=== PATIENT | male | born 1960 | race Caucasian/White ===

== ENCOUNTER 2018-12-22 06:12 | Day surgery (SDC) | payer MEDICAID ==
[2018-12-21 08:00] VITALS: BP 116/58; PULSE 69; RESP 15
[~2018-12-22] VITALS: Ht 167.6 cm; Wt 69.0 kg
[2018-12-22 07:45] VITALS: Ht 167.6 cm; Wt 69.0 kg
[2018-12-22] MEDS ORDERED: AMLO-218 PO (07:55)
[2018-12-22] MEDS ORDERED: ALLO100T PO (07:55)
[2018-12-22] MEDS ORDERED: LOSA25TA12 PO (07:55)
[2018-12-22] MEDS ORDERED: FEROUS SULFATE (07:55)
[2018-12-22] MEDS ORDERED: MEPERIDINE 25 MG INJ IV PRN (08:00)
[2018-12-22] MEDS ORDERED: ONDANSETRON 4 MG INJ IV PRN (08:00)
[2018-12-22] MEDS ORDERED: LABETALOL HCL 20MG INJ IV PRN (08:00)
[2018-12-22] MEDS ORDERED: FENTAnyl 50 MCG/ML VIAL IV PRN (08:00)
[2018-12-22] MEDS ORDERED: OXYCODONE/ACETAMINOPHEN (5/325) TAB PO PRN ×2 (08:00)
--- NOTE | 2018-12-22 08:00 | PREAC ---
Date/Time of Note Date/Time of Note DATE: 12/22/18 TIME: 07:37 Anesthesia Eval and Record Evaluation Time Pre-Procedure Interview DATE: 12/22/18 TIME: 07:37 Age 58 Sex male NPO: 8 hrs Preoperative diagnosis iron deficiency anemia Planned procedure egd and colonoscopy Past Medical History Past Medical History: Includes Cardio: HTN, Dyslipidemia Renal: CKD, Other (gout) GI: Obesity Surgery & Anesthesia Issues No known issue Meds Anticoagulation: No Beta Jean within 24 hr: No Reason Beta Jean not given: Pt. not on B-Jean Meds reviewed: Yes Allergies Allergies Reviewed: Yes Labs/Studies Labs Reviewed: Other (NA) test: N/A Pre-procedure Exam Airway: Adequate mouth opening, Adequate thyromental dist Mallampati: Mallampati III Teeth: Normal Lung: Normal Heart: Normal ASA Physical Status ASA physical status: 3 Emergency: None Planned Anesthetic General/MAC: MAC Pre-operative Attestations Prior to commencing anesthesia and surgery, the patient was re-evaluated, there was verification of: *The patient's identity *The results of appropriate recent lab work and preoperative vital signs *The above evaluation not changing prior to induction *Anesthetic plan, risk benefits, alternative and complications discussed with patient/family; questions answered; patient/family understands, accepts and wishes to proceed. TOMAS CORONA [employer] ADVIS[employer] Dec 22, 2018 07:48
[2018-12-22] MEDS ORDERED: LIDOCAINE 2% (SDV) 5 ML INJ ONE (08:01)
[2018-12-22] MEDS ORDERED: PROPOFOL 20 ML ONE ×2 (08:01→08:41)
--- NOTE | 2018-12-22 08:44 | PAC ---
Date/Time of Note Date/Time of Note DATE: 12/22/18 TIME: 08:43 Post-Anesthesia Notes Post-Anesthesia Note Last documented vital signs 100/51, 99%, 14, HR 82 Activity: WNL Respiratory function: WNL Cardiovascular function: WNL Mental status: Baseline Pain reasonably controlled: Yes Hydration appropriate: Yes Nausea/Vomiting absent: Yes TOMAS CORONA CRNA Dec 22, 2018 08:44
[2018-12-22 09:12] VITALS: BP 120/63; RESP 20
== END 2018-12-22 15:35 | disposition home or self-care (01) ==
LOC: GIL 06:12
PROVIDERS: ATTEND Internal Medicine Gastroenterology
DX: D12.5 Benign neoplasm of sigmoid colon (principal); K64.8 Other hemorrhoids; D50.9 Iron deficiency anemia, unspecified; K31.9 Disease of stomach and duodenum, unspecified; I12.9 Hypertensive chronic kidney disease with stage 1 through stage 4 chronic kidney disease, or unspecified chronic kidney disease; N18.9 Chronic kidney disease, unspecified; E78.5 Hyperlipidemia, unspecified
CPT/HCPCS: 43239; 45380; 88305; 88312; Z7610